=== PATIENT | female | born 1950 | race Caucasian/White ===

== ENCOUNTER 2023-11-13 11:31 | Outpatient (CLI) | payer MEDICARE, SELFPAY ==
--- NOTE | ~2023-11-13 | XR_ITS ---
AP view of the pelvis and AP and lateral views of the bilateral hips Clinical history: Pain Findings: No acute fracture or dislocation is seen. Osseous alignment is anatomic. Bilateral hip and SI joint spaces are preserved. Osteitis pubis noted. Soft tissues are unremarkable. Impression: Osteitis pubis. Reviewed, dictated and finalized at location . Impression: Osteitis pubis.
== END 2023-11-13 11:32 ==
PROVIDERS: PCP Physical Medicine & Rehabilitation Pain Medicine; Visit Provider Physical Medicine & Rehabilitation Pain Medicine
DX: R10.2 Pelvic and perineal pain (principal); M86.8X8 Other osteomyelitis, other site
CPT/HCPCS: 73521